=== PATIENT | male | born 1950 | race African-American/Black ===

== ENCOUNTER 2019-09-13 18:51 | Emergency (ER) | payer OTHER ==
[~2019-09-13] VITALS: Ht 175.3 cm; Wt 100.0 kg
[2019-09-13] MEDS ORDERED: VISCOUS LIDOCAINE 2% 15 ML UDC PO STA (19:39)
[2019-09-13] MEDS ORDERED: ONDANSETRON 4MG ODT PO STA (19:39)
[2019-09-13] MEDS ORDERED: DICYCLOMINE 10 MG/5 ML ORAL SYR PO STA (19:39)
[2019-09-13] MEDS ORDERED: MAGNESIUM/ALUMINUM HYDROXIDE/SIMETHICONE 30ML UDC PO STA (19:39)
[2019-09-13 20:07] LABS: CHLORIDE 102 mEq/L (98-107)
[2019-09-13 20:09] LABS: BASOPHILS % 0.4 % (0.0-2.0); HEMATOCRIT. 42.4 % (42.0-52.0); HEMOGLOBIN. 14.3 g/dL (14.0-18.0); LYMPHOCYTES % 26.7 % (20.0-50.0); MEAN CORPUSCULAR HEMOGLOBIN 31.1 pg (28.0-32.0); MEAN CORPUSCULAR VOLUME 92.1 fL (80.0-94.0); MEAN PLATELET VOLUME 7.8 fl (7.4-10.4); NEUTROPHILS % 64.9 % (40.0-76.0); PLATELET 212 x1000/uL (130-400); RED BLOOD CELL COUNT 4.61 mill/uL (4.7-6.1); RED CELL DISTRIBUTION WIDTH 13.9 % (11.6-14.6)
[2019-09-13 20:14] LABS: INR 0.9; PROTHROMBIN TIME 9.9 sec (9.6-11.0)
[2019-09-13] MEDS ORDERED: MAGNESIUM CITRATE 300ML SOLUTION PO ONE (21:15)
[2019-09-13 21:50] VITALS: BP 140/70
== END 2019-09-13 21:51 | disposition home or self-care (01) ==
LOC: ER 18:51
DX: R10.33 Periumbilical pain (principal); I10 Essential (primary) hypertension
CPT/HCPCS: 36415; 74176; 80053; 83690; 85025; 85610; 93005; 99285; Q0162